=== PATIENT | female | born 1945 | race Hispanic/Latino ===

== ENCOUNTER 2016-11-24 19:49 | Inpatient (IN) | payer MEDICARE ==
[2016-11-24] MEDS ORDERED: Morphine 4 mg/ml ISec IVP STA (20:14)
[2016-11-24] MEDS ORDERED: Sodium Chloride 0.9% 1,000 ML IV STA (20:14)
[2016-11-24] MEDS ORDERED: Morphine 2 mg/ml ISec IVP STA (20:16)
[2016-11-24 21:01] LABS: BASO # 0.02 K/mm3 (0.0-2.0); BASO % 0.1 % (0.0-3.0); EOS % 0.3 % (1.5-5.0); GRAN # 11.58 (1.4-6.5); GRAN % 76.6 % (50.0-68.0); HEMOGLOBIN 11.9 gm/dL (12.0-16.0); LYMPH # 1.9 (1.2-3.4); LYMPH % 12.5 % (22.0-35.0); MEAN CELL VOLUME 78.8 fL (80.0-105.0); MEAN CORPUSCULAR HEMOGLOBIN 25.8 pg (25.0-35.0); MEAN CORPUSCULAR HGB CONC 32.7 g/dl (31.0-37.0); MEAN PLATELET VOLUME 9.1 fl (7.0-11.0); MONO # 1.6 (0.1-0.6); MONO % 10.5 % (1.0-6.0); PLATELET COUNT 400 10^3/uL (120.0-450.0); RBC 4.62 10^6/uL (3.5-6.1); RED CELL DISTRIBUTION WIDTH 14.5 % (11.5-14.5); WHITE BLOOD COUNT 15.1 10^3/ul (4.5-11.0)
[2016-11-24 21:09] LABS: ALBUMIN 3.8 g/dL (3.0-4.8); ALT/SGPT 33 U/L (7-56); AST/SGOT 23 U/L (15-39); BLOOD UREA NITROGEN 12 mg/dL (7-21); GFR AFRICAN-AMERICAN > 60; GFR NON-AFRICAN AMERICAN > 60
[2016-11-24 21:12] LABS: AMYLASE 990 U/L (35-125)
[2016-11-24 21:15] LABS: INR 1.11 (0.93-1.08); PARTIAL THROMBOPLASTIN TIME 28.7 Seconds (23.7-30.8)
--- NOTE | 2016-11-24 21:15 | ED PDOC ---
Arrival/HPI - General Chief Complaint: Chest Pain Time Seen by Provider: 11/24/16 19:55 Historian: Patient - History of Present Illness Narrative History of Present Illness (Text): 11/24/16 21:12 Roro Ball is a 71 year old female, with a history of CVA, presents to the emergency department complaining of abdominal pain associated with distention since yesterday. States that pain radiates to the chest and shoulders. Denies any nausea, vomiting, or diarrhea. Denies any shortness of breath. Denies fever, chills, headache, dizziness, urinary symptoms, or any other complaints at this time. Time/Duration: Other (Yesterday ) Symptom Onset: Gradual Severity Level: Mild Activities at Onset: Light Context: Home Past Medical History - Provider Review Nursing Documentation Reviewed: Yes - Infectious Disease Hx of Infectious Diseases: None - Cardiac Hx Cardiac Disorders: Yes Hx Hypertension: Yes (pre-hypertensive) - Pulmonary Hx Respiratory Disorders: No - Neurological HX Cerebrovascular Accident: Yes (10 years ago, no deficits) - HEENT Hx HEENT Disorder: No - Renal Hx Renal Disorder: No - Endocrine/Metabolic Hx Diabetes Mellitus Type 2: Yes (pre-diabetic) - Hematological/Oncological Hx Blood Transfusions: No Hx Blood Transfusion Reaction: No - Integumentary Hx Dermatological Disorder: No - Musculoskeletal/Rheumatological Hx Falls: No - Gastrointestinal Hx Gastrointestinal Disorders: No - Genitourinary/Gynecological Hx Genitourinary Disorders: No - Psychiatric Hx Psychophysiologic Disorder: No Hx Substance Use: No - Surgical History Other/Comment: ectopic and laser Kidney stone removal to R kidney - Anesthesia Hx Anesthesia: Yes Hx Anesthesia Reactions: No Hx Malignant Hyperthermia: No Family/Social History - Physician Review Nursing Documentation Reviewed: Yes Family/Social History: No Known Family HX Smoking Status: Never Smoked Hx Alcohol Use: Yes (occasional glass of wine) Hx Substance Use: No Allergies/Home Meds Allergies/Adverse Reactions: Allergies Penicillins Allergy (Verified 11/24/16 20:05) RASH Review of Systems - Physician Review All systems were reviewed & negative as marked: Yes - Review of Systems Constitutional: Normal. absent: Fatigue, Fevers Respiratory: absent: SOB, Cough, Sputum Cardiovascular: Chest Pain Gastrointestinal: Abdominal Pain. absent: Diarrhea, Nausea, Vomiting Genitourinary Female: Normal. absent: Dysuria, Frequency Musculoskeletal: Other (Shoulder pain ) Neurological: Normal. absent: Headache, Dizziness Psychiatric: Normal Physical Exam Vital Signs Reviewed: Yes Vital Signs Temp Pulse Pulse Resp BP Pulse Ox 11/25/16 02:22 82 18 99 11/25/16 00:56 98.2 F 92 H 23 147/84 94 L 11/24/16 20:10 86 11/24/16 20:06 99.1 F 100 H 26 H 201/82 H 95 Temperature: Afebrile Blood Pressure: Hypertensive Pulse: Tachycardic Respiratory Rate: Normal Appearance: Positive for: Well-Appearing, Non-Toxic, Comfortable Pain Distress: None Mental Status: Positive for: Alert and Oriented X 3 Finger Stick Blood Glucose: 364 - Systems Exam Head: Present: Atraumatic, Normocephalic Pupils: Present: PERRL Extroacular Muscles: Present: EOMI Conjunctiva: Present: Normal Mouth: Present: Moist Mucous Membranes Neck: Present: Normal Range of Motion Respiratory/Chest: Present: Clear to Auscultation, Good Air Exchange. No: Respiratory Distress, Accessory Muscle Use Cardiovascular: Present: Regular Rate and Rhythm, Normal S1, S2. No: Murmurs Abdomen: Present: Tenderness (RUQ tenderness ), Normal Bowel Sounds. No: Distention, Peritoneal Signs, Rebound, Guarding Upper Extremity: Present: Normal Inspection. No: Cyanosis, Edema Lower Extremity: Present: Normal Inspection. No: Edema Neurological: Present: GCS=15, CN II-XII Intact, Speech Normal, Motor Func Grossly Intact, Normal Sensory Function Skin: Present: Warm, Dry, Normal Color. No: Rashes Psychiatric: Present: Alert, Oriented x 3, Normal Insight, Normal Concentration Medical Decision Making ED Course and Treatment: 11/24/16 21:17 Impression: A 71 year old female who presents to the emergency department complaining of abdominal pain radiating to chest and shoulder since yesterday. Plan: -- EKG -- Labs -- Morphine -- IV Fluids -- Zofran -- Urinalysis -- US Gall bladder -- Reassess and disposition Progress Notes: 11/24/16 21:17 EKG reviewed by me: NSR @ 98 bpm. Possible left atrial enlargement. Prolonged QT. US results reviewed: FINDINGS: Liver: Fatty infiltration. 3.2 x 2.1 x 2.3 cm hypoechoic lesion within RIGHT lobe. No intrahepatic ductal dilatation. Gallbladder: No gallstones. 0.32 cm wall thickness. No pericholecystic fluid. No sonographic Casas's sign. Common bile duct: No dilatation. No stones. Pancreas: Unremarkable as visualized. Right kidney: Normal echogenicity. 0.5 x 0.4 x 0.6 cm calculus. Mild pelvocaliectasis. IMPRESSION: 1. Liver lesion, indeterminate. Recommend nonemergent MRI. 2. Mild pelvocaliectasis of RIGHT kidney. 3. Incidental/non-acute findings are described above. Dictated and Authenticated by: Marvel Ventura MD CT abd/pel results reviewed by me: FINDINGS: Limitations: Lack of intravenous contrast. Motion artifact - mild. Lower thorax: Borderline cardiomegaly. Coronary artery calcifications. Mild atelectasis/scarring. ABDOMEN: Liver: Fatty infiltration. Focal fatty sparing about gallbladder fossa. Gallbladder and bile ducts: No calcified stones. No ductal dilation. Pancreas: Several calcifications within head of pancreas. 3.0 x 1.6 x 2.3 cm hypodense lesion within uncinate process of pancreas, grossly stable. Apparent minimal stranding about pancreas. Mild prominence of pancreatic duct. Spleen: No splenomegaly. Adrenals: No mass. Kidneys and ureters: Mild stranding about kidneys, nonspecific. Moderate pelvocaliectasis of RIGHT kidney. Mildly dilated RIGHT ureter. Stomach and bowel: Segmental areas of underdistention of LEFT colon. No definite mural thickening. No obstruction. Appendix: Normal caliber. No definite inflammation. PELVIS: Bladder: Unremarkable. No stones. Reproductive: 1.4 x 1.4 x 1.8 cm hypodense lesion within LEFT ovary, grossly stable. ABDOMEN and PELVIS: Intraperitoneal space: Small free fluid within pelvis. 3.5 x 1.6 x 3.4 cm fluid collection along caudate lobe. Bones/joints: Degenerative changes of spine. No acute fracture. Soft tissues: Unremarkable. Vasculature: Mild atherosclerotic disease. No aneurysm. Lymph nodes: No pathologically enlarged lymph nodes. IMPRESSION: 1. Pancreatic lesion, indeterminate but grossly stable. Recommend followup to ensure stability. 2. Apparent minimal stranding about pancreas. Correlate with amylase/lipase levels to exclude pancreatitis. 3. Fluid collection about caudate lobe of liver. DDX: Pseudocyst, abscess, chronic subcapsular hematoma. 4. Hydroureteronephrosis without CT evidence of obstructing calculus. DDX: obstructing radiolucent stone, recently passed ureteral calculus, ureteral stricture, infection, obstructing ureteral mass. Clinical correlation and follow up are recommended. 5. Probable LEFT ovarian cyst, grossly stable. 6. Incidental/non-acute findings are described above. Dictated and Authenticated by: Marvel Ventura MD 11/25/16 01:[address] Gaona who is aware and agrees with the plan to observe patient at Med/surg for pancreatitis. Accepts patient under his service. - Lab Interpretations Lab Results: 11/24/16 20:50 11/24/16 20:50 Lab Results 11/24/16 20:50: Sodium 133, Potassium 4.2, Chloride 98, Carbon Dioxide 25, Anion Gap 14, BUN 12, Creatinine 0.8, Est GFR ( Amer) > 60, Est GFR (Non- Af Amer) > 60, Random Glucose 394 H* D, Calcium 9.0, Total Bilirubin 0.6, AST 23 , ALT 33, Alkaline Phosphatase 91, Lactate Dehydrogenase 331 L, Total Creatine Kinase 37, Troponin I < 0.01, Total Protein 7.5, Albumin 3.8, Globulin 3.7, Albumin/Globulin Ratio 1.0 L, Amylase 990 H, Lipase 9221 H 11/24/16 20:50: PT 12.0 H, INR 1.11 H, APTT 28.7 11/24/16 20:50: WBC 15.1 H, RBC 4.62, Hgb 11.9 L, Hct 36.4, MCV 78.8 L, MCH 25.8 , MCHC 32.7, RDW 14.5, Plt Count 400, MPV 9.1, Gran % 76.6 H, Lymph % (Auto) 12.5 L, [place] % (Auto) 10.5 H, Eos % (Auto) 0.3 L, Baso % (Auto) 0.1, Gran # 11.58 H, Lymph # 1.9, [place] # 1.6 H, Eos # 0.0, Baso # 0.02 11/24/16 20:12: POC Glucose (mg/dL) 364 H I have reviewed the lab results: Yes - RAD Interpretation Radiology Orders: 11/24/16 20:16 GALL BLADDER [US] Stat 11/24/16 21:53 ABD & PELVIS W/O PO OR IV CONT [CT] Stat Tool Crib Manager: Radiologist - EKG Interpretation Interpreted by ED Physician: Yes Type: 12 lead EKG - Medication Orders Current Medication Orders: Acetaminophen (Tylenol 325mg Tab) 650 mg PO Q4H PRN PRN Reason: Fever >100.5 F Sodium Chloride (Sodium Chloride 0.9%) 1,000 mls @ 100 mls/hr IV .Q10H CHAYO Stop: 11/27/16 05:00 Last Admin: 11/25/16 16:52 Dose: 100 mls/hr Insulin Human Regular (Humulin R Low) 0 units SC ACHS CHAYO PRN Reason: Protocol Last Admin: 11/25/16 21:54 Dose: Not Given Non-Admin Reason: Blood Sugar Parameter Morphine Sulfate (Morphine) 1 mg IVP Q3H PRN PRN Reason: Pain, moderate (4-7) Ondansetron HCl (Zofran Inj) 4 mg IVP Q6H PRN PRN Reason: Nausea/Vomiting Discontinued Medications Sodium Chloride (Sodium Chloride 0.9%) 1,000 mls @ 100 mls/hr IV .Q10H STA Stop: 11/25/16 06:13 Last Admin: 11/24/16 20:55 Dose: 100 mls/hr Sodium Chloride (Sodium Chloride 0.9%) 1,000 mls @ 100 mls/hr IV .Q10H STA Stop: 11/25/16 12:00 Morphine Sulfate (Morphine) 2 mg IVP STAT STA Stop: 11/24/16 20:17 Last Admin: 11/24/16 20:54 Dose: 2 mg Morphine Sulfate (Morphine) 2 mg IVP STAT STA Stop: 11/25/16 02:04 Last Admin: 11/25/16 02:46 Dose: 2 mg Ondansetron HCl (Zofran Inj) 4 mg IVP STAT STA Stop: 11/24/16 20:15 Last Admin: 11/24/16 20:54 Dose: 4 mg - Scribe Statement The provider has reviewed the documentation as recorded by the Alan Du Provider Attestation: Provider Scribe Attestation: All medical record entries made by the Walteribxenia were at my direction and personally dictated by me. I have reviewed the chart and agree that the record accurately reflects my personal performance of the history, physical exam, medical decision making, and the department course for this patient. I have also personally directed, reviewed, and agree with the discharge instructions and disposition. Disposition/Present on Arrival - Present on Arrival Any Indicators Present on Arrival: No History of DVT/PE: No History of Uncontrolled Diabetes: Yes Urinary Catheter: No History of Decub. Ulcer: No History Surgical Site Infection Following: None - Disposition Have Diagnosis and Disposition been Completed?: Yes Diagnosis: Pancreatitis Disposition: HOSPITALIZED Disposition Time: 01:30 Condition: FAIR
[2016-11-24 21:26] LABS: LIPASE 9221 U/L (23-300); TROPONIN I < 0.01 ng/mL
--- NOTE | 2016-11-24 21:41 | US ---
EXAM: US Abdomen Limited, Right Upper Quadrant CLINICAL HISTORY: 71 years old, female; Pain; Abdominal pain; Additional info: Ruq pain TECHNIQUE: Real-time ultrasound of the right upper quadrant with image documentation. COMPARISON: CT - PANCREATIC PROTOCOL 04/12/2016 5:39:51 PM FINDINGS: Liver: Fatty infiltration. 3.2 x 2.1 x 2.3 cm hypoechoic lesion within RIGHT lobe. No intrahepatic ductal dilatation. Gallbladder: No gallstones. 0.32 cm wall thickness. No pericholecystic fluid. No sonographic Casas's sign. Common bile duct: No dilatation. No stones. Pancreas: Unremarkable as visualized. Right kidney: Normal echogenicity. 0.5 x 0.4 x 0.6 cm calculus. Mild pelvocaliectasis. IMPRESSION: 1. Liver lesion, indeterminate. Recommend nonemergent MRI. 2. Mild pelvocaliectasis of RIGHT kidney. 3. Incidental/non-acute findings are described above.
--- NOTE | 2016-11-25 01:07 | CT ---
EXAM: CT Abdomen and Pelvis Without Intravenous Contrast CLINICAL HISTORY: 71 years old, female; Pain; Abdominal pain; Generalized; Prior surgery; Surgery date: 6+ months; Additional info: Abd pain TECHNIQUE: Axial computed tomography images of the abdomen and pelvis without intravenous contrast. This CT exam was performed using one or more of the following dose reduction techniques: automated exposure control, adjustment of the mA and/or kV according to patient size, and/or use of iterative reconstruction technique. Coronal and sagittal reformatted images were created and reviewed. COMPARISON: CT - PANCREATIC PROTOCOL 04/12/2016 5:39:51 PM FINDINGS: Limitations: Lack of intravenous contrast. Motion artifact - mild. Lower thorax: Borderline cardiomegaly. Coronary artery calcifications. Mild atelectasis/scarring. ABDOMEN: Liver: Fatty infiltration. Focal fatty sparing about gallbladder fossa. Gallbladder and bile ducts: No calcified stones. No ductal dilation. Pancreas: Several calcifications within head of pancreas. 3.0 x 1.6 x 2.3 cm hypodense lesion within uncinate process of pancreas, grossly stable. Apparent minimal stranding about pancreas. Mild prominence of pancreatic duct. Spleen: No splenomegaly. Adrenals: No mass. Kidneys and ureters: Mild stranding about kidneys, nonspecific. Moderate pelvocaliectasis of RIGHT kidney. Mildly dilated RIGHT ureter. Stomach and bowel: Segmental areas of underdistention of LEFT colon. No definite mural thickening. No obstruction. Appendix: Normal caliber. No definite inflammation. PELVIS: Bladder: Unremarkable. No stones. Reproductive: 1.4 x 1.4 x 1.8 cm hypodense lesion within LEFT ovary, grossly stable. ABDOMEN and PELVIS: Intraperitoneal space: Small free fluid within pelvis. 3.5 x 1.6 x 3.4 cm fluid collection along caudate lobe. Bones/joints: Degenerative changes of spine. No acute fracture. Soft tissues: Unremarkable. Vasculature: Mild atherosclerotic disease. No aneurysm. Lymph nodes: No pathologically enlarged lymph nodes. IMPRESSION: 1. Pancreatic lesion, indeterminate but grossly stable. Recommend followup to ensure stability. 2. Apparent minimal stranding about pancreas. Correlate with amylase/lipase levels to exclude pancreatitis. 3. Fluid collection about caudate lobe of liver. DDX: Pseudocyst, abscess, chronic subcapsular hematoma. 4. Hydroureteronephrosis without CT evidence of obstructing calculus. DDX: obstructing radiolucent stone, recently passed ureteral calculus, ureteral stricture, infection, obstructing ureteral mass. Clinical correlation and follow up are recommended. 5. Probable LEFT ovarian cyst, grossly stable. 6. Incidental/non-acute findings are described above.
[2016-11-25] MEDS ORDERED: Sodium Chloride 0.9% 1,000 ML IV STA (02:01)
[2016-11-25] MEDS ORDERED: Morphine 2 mg/ml ISec IVP STA (02:03)
[2016-11-25 08:59] LABS: BASO # 0.02 K/mm3 (0.0-2.0); BASO % 0.1 % (0.0-3.0); EOS # 0.1 (0.0-0.7); EOS % 0.5 % (1.5-5.0); GRAN # 10.77 (1.4-6.5); GRAN % 72.9 % (50.0-68.0); HEMOGLOBIN 10.9 gm/dL (12.0-16.0); LYMPH # 2.1 (1.2-3.4); LYMPH % 14.3 % (22.0-35.0); MEAN CELL VOLUME 79.4 fL (80.0-105.0); MEAN CORPUSCULAR HEMOGLOBIN 25.5 pg (25.0-35.0); MEAN CORPUSCULAR HGB CONC 32.1 g/dl (31.0-37.0); MONO # 1.8 (0.1-0.6); MONO % 12.2 % (1.0-6.0); PLATELET COUNT 356 10^3/uL (120.0-450.0); RBC 4.28 10^6/uL (3.5-6.1); RED CELL DISTRIBUTION WIDTH 14.6 % (11.5-14.5); WHITE BLOOD COUNT 14.8 10^3/ul (4.5-11.0)
[2016-11-25 09:10] LABS: ALBUMIN 3.5 g/dL (3.0-4.8); ALT/SGPT 30 U/L (7-56); AST/SGOT 20 U/L (15-39); BLOOD UREA NITROGEN 12 mg/dL (7-21); CALCIUM 8.8 mg/dL (8.4-10.5); GFR AFRICAN-AMERICAN > 60; GFR NON-AFRICAN AMERICAN > 60; MAGNESIUM 1.9 mg/dL (1.7-2.2)
[2016-11-25 09:17] LABS: LIPASE 3664 U/L (23-300)
[2016-11-25] MEDS ORDERED: FMT LOWER DELIVERY MICROBIOTA PREPARATION 250 ML RC ONE (09:59)
[2016-11-25] MEDS ORDERED: Morphine 2 mg/ml ISec IVP PRN (10:00)
--- NOTE | 2016-11-25 13:00 | CARD ---
APPROVED REPORT EKG Measurement Heart [id number] <Conclusion> Normal sinus rhythm Possible Left atrial enlargement Prolonged QT Abnormal ECG
[2016-11-25] MEDS: Sodium Chloride 0.9% 1,000 ML IV SCH (16:52)
[2016-11-25] MEDS: Insulin Reg-LOW-Coverage SC SCH (21:54)
[2016-11-26 07:20] LABS: ALBUMIN 3.5 g/dL (3.0-4.8); ALT/SGPT 30 U/L (7-56); AST/SGOT 22 U/L (15-39); BLOOD UREA NITROGEN 9 mg/dL (7-21); CALCIUM 8.3 mg/dL (8.4-10.5); GFR AFRICAN-AMERICAN > 60; GFR NON-AFRICAN AMERICAN > 60; LIPASE 742 U/L (23-300); MAGNESIUM 1.9 mg/dL (1.7-2.2)
[2016-11-26 07:31] LABS: HDL CHOLESTEROL 34 mg/dL (29-60); LDL CHOLESTEROL 85 mg/dL (0-129)
[2016-11-26 07:39] LABS: BASO # 0.03 K/mm3 (0.0-2.0); BASO % 0.2 % (0.0-3.0); EOS # 0.2 (0.0-0.7); EOS % 1.6 % (1.5-5.0); GRAN % 62.9 % (50.0-68.0); HEMOGLOBIN 11.1 gm/dL (12.0-16.0); LYMPH # 3.2 (1.2-3.4); MEAN CELL VOLUME 81.1 fL (80.0-105.0); MEAN CORPUSCULAR HEMOGLOBIN 25.6 pg (25.0-35.0); MEAN CORPUSCULAR HGB CONC 31.5 g/dl (31.0-37.0); MEAN PLATELET VOLUME 9.4 fl (7.0-11.0); MONO # 1.3 (0.1-0.6); MONO % 10.3 % (1.0-6.0); PLATELET COUNT 437 10^3/uL (120.0-450.0); RBC 4.34 10^6/uL (3.5-6.1); RED CELL DISTRIBUTION WIDTH 14.9 % (11.5-14.5); WHITE BLOOD COUNT 12.7 10^3/ul (4.5-11.0)
[2016-11-26] MEDS: Insulin Reg-LOW-Coverage SC SCH ×4 (08:34→21:50)
[2016-11-26] MEDS: Sodium Chloride 0.9% 1,000 ML IV SCH (08:36)
--- NOTE | 2016-11-26 18:21 | CON ---
DATE OF SERVICE: 11/26/2016 HISTORY OF PRESENT ILLNESS: I examined Ms. Ball this morning. She is a 71-year-old Syrian female with a history of CVA in the past, admitted with complaints of severe diffuse abdominal pain which started last Wednesday. Pain radiated across her chest up to her shoulders and this was associated with distended abdomen. She felt *------* constipation, she took Fleet enemas with immediate relief. The patient denies hematemesis or rectal bleeding. This is the first episode she has had of this type. This morning at the bedside, the abdomen is slightly decompressed. She feels better than previously, especially after a small bowel movement last night. The pain is still across the upper part of her abdomen into the chest area and she feels comfortable with the current regimen. PHYSICAL EXAMINATION: VITAL SIGNS: I reviewed the patient's vital signs. HEENT: Significant for dry mouth. LUNGS: Some crackles bilaterally, especially in the right base. HEART: Irregular rhythm. ABDOMEN: Mildly protuberant, nontender in the area of the right lower quadrant and the left lower quadrant. She is mildly tender in the area of the periumbilical, the right upper quadrant, and the left upper quadrant. She also exhibits some epigastric discomfort. LABORATORY DATA: Indicates white count on admission of 15,000 with an H and H of 11.9 and 36.4. INR is within normal limits. Chemistry indicates lipase of 3600 with sugar ranging between 220 to 330. Hemoglobin A1c is 9.9. There is no record of triglyceride or cholesterol, but she has indicated that these have been "high in the past." I reviewed the abdomen and pelvic CT images which are significant for hepatic steatosis. There is also pancreatic calcification with a small lesion in the uncinate process. There is some pancreatic stranding. There is no pseudocyst. There is small amount of fluid in the pelvis also. The CT also indicates according to Radiology some hydroureteronephrosis. Note that there is a dilated right ureter. OVERALL ASSESSMENT: This is a 71-year-old Syrian female, admitted with exacerbation of abdominal pain with chest discomfort secondary to pancreatitis. Evaluation of the CT noted above. Note that her ultrasound indicates hepatic steatosis with also one small hypercoagulation in the right lobe. There is no intrahepatic ductal dilatation. There is calculus in the right kidney. There is no common bile duct obstruction. I reviewed the orders of this current case which include IV fluids, analgesics on a p.r.n. basis, Zofran. The IV fluids are currently at 100. One can consider increasing the IV fluid rate, also changing over to Ringer's Lactate. I think at this point in time also since the etiology of pancreatitis is uncertain, I will check a lipid profile. Review of her CT images regarding the uncinate process, dense lesion in the pancreas has to be entertained. At the current time in point at the bedside, the patient appears comfortable on the current regimen. The patient will be followed by *------* later on this morning. We would maintain the patient n.p.o. at this current time in point. Haroldo Paredes DO
[2016-11-27] MEDS: Sodium Chloride 0.9% 1,000 ML IV SCH (05:53)
--- NOTE | 2016-11-27 07:08 | PN ---
DATE: SUBJECTIVE: I saw this patient this morning. She is a 71-year-old white female admitted with complaints of abdominal pain, nausea, vomiting secondary to pancreatitis. The patient is improved dramatically on a current therapeutic regimen. She wished to have her diet advanced this morning. PHYSICAL EXAMINATION VITAL SIGNS: I reviewed this patient's vital signs. HEENT: Mouth is mildly dry. LUNGS: Clear to auscultation. HEART: Regular rhythm. ABDOMEN: Mildly tender, so protuberant. Regular bowel sounds. LABORATORY DATA: Laboratory data is pending for today. ASSESSMENT: This is a 71-year-old white female with signs and symptoms of pancreatitis, currently improving on current therapeutic regimen, can consider transfer of fluids to Ringer's lactate instead of sodium chloride at a later date. The patient's diet was advanced to very small volumes of clear liquid this morning only if the pain and nausea permit. Haroldo Paredes DO
[2016-11-27] MEDS: Insulin Reg-LOW-Coverage SC SCH ×4 (08:14→21:28)
[2016-11-27 08:34] LABS: BASO # 0.02 K/mm3 (0.0-2.0); BASO % 0.2 % (0.0-3.0); EOS # 0.3 (0.0-0.7); EOS % 2.5 % (1.5-5.0); GRAN # 6.98 (1.4-6.5); HEMOGLOBIN 10.5 gm/dL (12.0-16.0); LYMPH # 2.5 (1.2-3.4); LYMPH % 22.9 % (22.0-35.0); MEAN CELL VOLUME 79.4 fL (80.0-105.0); MEAN CORPUSCULAR HEMOGLOBIN 25.2 pg (25.0-35.0); MEAN CORPUSCULAR HGB CONC 31.7 g/dl (31.0-37.0); MEAN PLATELET VOLUME 8.7 fl (7.0-11.0); MONO # 1.1 (0.1-0.6); MONO % 10.4 % (1.0-6.0); PLATELET COUNT 382 10^3/uL (120.0-450.0); RBC 4.17 10^6/uL (3.5-6.1); WHITE BLOOD COUNT 10.9 10^3/ul (4.5-11.0)
[2016-11-27 08:44] LABS: ALB/GLOB RATIO 0.9 (1.1-1.8); ALBUMIN 3.3 g/dL (3.0-4.8); ALT/SGPT 29 U/L (7-56); AST/SGOT 24 U/L (15-39); BLOOD UREA NITROGEN 9 mg/dL (7-21); CALCIUM 8.4 mg/dL (8.4-10.5); GFR AFRICAN-AMERICAN > 60; GFR NON-AFRICAN AMERICAN > 60; LIPASE 602 U/L (23-300); MAGNESIUM 1.8 mg/dL (1.7-2.2)
[2016-11-27] MEDS: POLYETHYLENE GLYCOL 3350 17 GM/Dose PACKET PO SCH ×2 (10:28→17:37)
[2016-11-27] MEDS ORDERED: Potassium Chloride 20 mEq ER Tab PO ONE (11:02)
[2016-11-28] MEDS: Lactated Ringer's 1,000 ML IV SCH ×2 (06:22→17:05)
--- NOTE | 2016-11-28 07:04 | PN ---
DATE: 11/28/2016 SUBJECTIVE: I saw Ms. Carrera this morning. She is a [id number]old white female here with abdominal pain, nausea and vomiting with signs and symptoms of pancreatitis. The patient has made significant progress with us in 24 hours relative to day of admission. The pain is decreased to above possibly 3/4 out of 10. She is currently consuming a clear liquid diet, no issues. Advance diet to full liquids today. She now has IV fluids on board. PHYSICAL EXAMINATION HEENT: Noncontributory. CARDIOPULMONARY: Regular rate and rhythm. LUNGS: Clear to auscultation. ABDOMEN: Significantly being tender in the periumbilical area in the left upper quadrant, but decreased relatively to admission. The abdomen is soft and decompressed. LABORATORY DATA: I reviewed this patient's laboratory data. White count is currently down from 15 to 10,000 as of yesterday, it is pending for today. Lipase as of yesterday 602. Sugars ranges 200. ASSESSMENT AND PLAN: This is a 71-year-old white female here with signs and symptoms of pancreatitis. Currently making progress on current therapeutic regimen. I will reinstitute IV fluids of Ringers of Lactate at 100 an hour, advance diet to very small volumes of full fluid. She later on this morning. Haroldo Paredes DO
--- NOTE | 2016-11-28 07:23 | PN ---
DATE: 11/27/2016 SUBJECTIVE: The patient is a 71-year-old female, who was admitted yesterday with a diagnosis of pancreatitis. The patient experienced sudden onset of abdominal pain, presented to the emergency room and based on remarkably elevated amylase and lipase level plus CAT scan findings, the diagnosis was made. The patient was admitted. She was treated with intravenous antibiotics and she was maintained n.p.o. Since the admission, the patient had been improving. She stated the abdominal pain was decreasing. When seen today, the patient was sitting up in a chair. She was looking and feeling much better. PHYSICAL EXAMINATION: VITAL SIGNS: Remain stable. She remains afebrile. CARDIOPULMONARY: Regular. LUNGS: Clear. ABDOMEN: Soft. It was markedly less tender than on admission. The patient had been evaluated by Dr. Kaiser and then as the patient's request, changed Crts to Dr. Haroldo Paredes. We are slowly increasing the patient's diet at this point. She is up to clear liquids now. We will give her her medications from before hospitalization including the metformin, lisinopril, glipizide, Lipitor, aspirin and Xanax. Her lipase had come down from 9000 plus to 3664. The white blood cell count have also been normalizing from 15.1 down to 12.7. ASSESSMENT AND PLAN: We will continue to follow the patient closely, slowly increase diet as tolerated and we will be checking her labs in the morning. Macho Phillips MD [facility]
[2016-11-28 08:01] LABS: HEMOGLOBIN 10.6 gm/dL (12.0-16.0); MEAN CELL VOLUME 78.7 fL (80.0-105.0); MEAN CORPUSCULAR HEMOGLOBIN 25.1 pg (25.0-35.0); MEAN CORPUSCULAR HGB CONC 31.8 g/dl (31.0-37.0); MEAN PLATELET VOLUME 8.9 fl (7.0-11.0); RBC 4.23 10^6/uL (3.5-6.1); WHITE BLOOD COUNT 8.9 10^3/ul (4.5-11.0)
[2016-11-28 08:11] LABS: BLOOD UREA NITROGEN 5 mg/dL (7-21); CALCIUM 8.6 mg/dL (8.4-10.5); GFR AFRICAN-AMERICAN > 60; GFR NON-AFRICAN AMERICAN > 60; LIPASE 810 U/L (23-300); MAGNESIUM 1.8 mg/dL (1.7-2.2)
[2016-11-28] MEDS: Insulin Reg-LOW-Coverage SC SCH ×4 (08:15→22:03)
[2016-11-28] MEDS: POLYETHYLENE GLYCOL 3350 17 GM/Dose PACKET PO SCH ×3 (09:37→17:05)
--- NOTE | 2016-11-28 13:57 | HP ---
DATE OF ADMISSION: 11/25/2016 HISTORY OF PRESENT ILLNESS: The patient is a 71-year-old female, who presented to the emergency room complaining of sudden onset of abdominal pain. She had not been feeling well. She ate in a seafood restaurant and later on that evening became suddenly ill. The abdominal pain was radiating up to the shoulders. She denies any nausea, vomiting, diarrhea. Denies any chest pain, palpitations, or shortness of breath. PAST MEDICAL HISTORY: She has a past medical history positive for cerebrovascular disease and non-insulin dependent diabetes mellitus. In the distant past she had ectopic as well as lithotripsy of a right renal calculus. SOCIAL HISTORY: She is a . She never smoked. She occasional enjoys a glass of wine with dinner. ALLERGIES: She is noted to be allergic to PENICILLIN which caused a rash in the past. MEDICATIONS: At the time of admission include metformin 500 mg twice a day, lisinopril 10 mg once a day, glipizide 5 mg, Lipitor 10 mg, aspirin 81 mg, and Xanax 0.25 mg every 6 hours as needed. REVIEW OF SYSTEMS: Otherwise unremarkable. PHYSICAL EXAMINATION VITAL SIGNS: In the emergency room, the blood pressure was 201/82, respirations were 26, heart rate was 100 beats per minute, temperature was 99.1 degrees Fahrenheit. HEENT: The head, eyes, ears, nose, and throat were unremarkable. NECK: Supple with no lymphadenopathy. No goiter. LUNGS: Clear to auscultation and percussion. HEART: Regular. No murmurs are appreciated. ABDOMEN: Distended and diffusely tender, exquisitely tender in the midepigastric, right upper quadrant areas; however, was also tender in the left lower quadrant and left upper quadrant. EXTREMITIES: Free of cyanosis, clubbing, or edema. NEUROLOGICALLY: The patient was awake, alert, and oriented with nonfocal neurological signs. LABORATORY DATA: Revealed a white blood cell count to be 15.1, hemoglobin and hematocrit were 11.9 and 36.4 respectively, platelet count was 400. Sodium was 133, potassium 4.2, BUN and creatinine were 12 and 0.8 respectively, glucose was 394. Amylase was 990 and lipase was 9221. EKG showed regular sinus rhythm, left atrial enlargement and prolonged QT intervals. Ultrasound of the abdomen revealed fatty infiltration of the liver, There was a hypoechoic lesion within the right lobe, but no intrahepatic ductal dilatation. The gallbladder was free of gallstones. The wall of the gallbladder was 0.32 cm thick. Common bile duct was not dilated and the pancreas was unremarkable as visualized. The patient underwent CT of the abdomen and pelvis and this showed several calcifications within the head of the pancreas, 3 x 1.6 x 2.3 cm hyperdense lesions within uncinate process of the pancreas, it was grossly stable. There was minimal stranding about the pancreas with mild prominence of the pancreatic duct. The spleen showed no splenomegaly. The patient was admitted with the diagnosis of pancreatitis, she was started on IV fluids, made n.p.o. and GI consult was requested. We will follow the patient closely. Macho Phillips MDDD: 11/28/2016 6:14:06 [facility] CENTERBrooke
--- NOTE | 2016-11-28 23:30 | CP.PCM.PN ---
Subjective - Date & Time of Evaluation Date of Evaluation: 11/28/16 Time of Evaluation: 23:25 - Subjective Subjective: Nurse calls and tells that her BP was 202 / 84 mmHg, ordered hydralazine 25 mg PO , BP is still 181/107. Patient was seen at bedside. Has no complaints. Denies head ache, heaviness in head, lightheadedness, chest pain, sob, dizziness, paraesthesia, weakness. 71 year old woman was admitted with abdominal pain, feeling of not well being, Has PMH of CVA,NIDDM, right renal calculus, lithotripsy, ectopic . Objective - Vital Signs/Intake and Output Vital Signs (last 24 hours): Temp Pulse Resp BP Pulse Ox 97.4 F L 75 20 181/107 H 96 11/28/16 16:30 11/28/16 22:45 11/28/16 16:30 11/28/16 22:45 11/28/16 16:30 Intake and Output: 11/28/16 11/29/16 18:59 06:59 Intake Total 1460 360 Balance 1460 360 - Medications Medications: Current Medications Acetaminophen (Tylenol 325mg Tab) 650 mg PO Q4H PRN PRN Reason: Fever >100.5 F Alprazolam (Xanax) 0.25 mg PO Q6 PRN; Protocol PRN Reason: Agitation Stop: 12/04/16 18:01 Aspirin (Ecotrin) 81 mg PO DAILY [facility] Last Admin: 11/28/16 09:37 Dose: 81 mg Atorvastatin Calcium (Lipitor) 10 mg PO DIN [facility] Last Admin: 11/28/16 17:05 Dose: 10 mg Docusate Sodium (Colace) 100 mg PO BID [facility] Last Admin: 11/28/16 17:04 Dose: 100 mg Glipizide (Glucotrol) 5 mg PO ACB [facility] Last Admin: 11/28/16 08:15 Dose: 5 mg Hydralazine HCl (Apresoline) 25 mg PO DAILY [facility] Lactated Ringer's (Lactated Ringer's) 1,000 mls @ 100 mls/hr IV .Q10H [facility] Stop: 11/30/16 23:59 Last Admin: 11/28/16 17:05 Dose: Not Given Insulin Human Regular (Humulin R Low) 0 units SC ACHS [facility] PRN Reason: Protocol Last Admin: 11/28/16 22:03 Dose: Not Given Lisinopril (Zestril) 10 mg PO DAILY [facility] Last Admin: 11/28/16 09:38 Dose: 10 mg Metformin HCl (Glucophage) 500 mg PO BID [facility] Last Admin: 11/28/16 17:04 Dose: 500 mg Ondansetron HCl (Zofran Inj) 4 mg IVP Q6H PRN PRN Reason: Nausea/Vomiting Polyethylene Glycol (Miralax) 17 gm PO BID [facility] Last Admin: 11/28/16 17:05 Dose: 17 gm - Labs Labs: 11/28/16 06:55 11/28/16 06:55 PT 12.0 Seconds (9.9-11.8) H 11/24/16 20:50 INR 1.11 (0.93-1.08) H 11/24/16 20:50 APTT 28.7 Seconds (23.7-30.8) 11/24/16 20:50 Laboratory Last Values WBC 8.9 10^3/ul (4.5-11.0) 11/28/16 06:55 RBC 4.23 10^6/uL (3.5-6.1) 11/28/16 06:55 Hgb 10.6 gm/dL (12.0-16.0) L 11/28/16 06:55 Hct 33.3 % (36.0-48.0) L 11/28/16 06:55 MCV 78.7 fL (80.0-105.0) L 11/28/16 06:55 MCH 25.1 pg (25.0-35.0) 11/28/16 06:55 MCHC 31.8 g/dl (31.0-37.0) 11/28/16 06:55 RDW 14.0 % (11.5-14.5) 11/28/16 06:55 Plt Count 449 10^3/uL (120.0-450.0) 11/28/16 06:55 MPV 8.9 fl (7.0-11.0) 11/28/16 06:55 Gran % 64.0 % (50.0-68.0) 11/27/16 08:30 Lymph % (Auto) 22.9 % (22.0-35.0) 11/27/16 08:30 Maury % (Auto) 10.4 % (1.0-6.0) H 11/27/16 08:30 Eos % (Auto) 2.5 % (1.5-5.0) 11/27/16 08:30 Baso % (Auto) 0.2 % (0.0-3.0) 11/27/16 08:30 Gran # 6.98 (1.4-6.5) H 11/27/16 08:30 Lymph # 2.5 (1.2-3.4) 11/27/16 08:30 Maury # 1.1 (0.1-0.6) H 11/27/16 08:30 Eos # 0.3 (0.0-0.7) 11/27/16 08:30 Baso # 0.02 K/mm3 (0.0-2.0) 11/27/16 08:30 PT 12.0 Seconds (9.9-11.8) H 11/24/16 20:50 INR 1.11 (0.93-1.08) H 11/24/16 20:50 APTT 28.7 Seconds (23.7-30.8) 11/24/16 20:50 Sodium 138 mmol/L (132-148) 11/28/16 06:55 Potassium 3.8 mmol/L (3.6-5.0) 11/28/16 06:55 Chloride 102 mmol/L (98-107) 11/28/16 06:55 Carbon Dioxide 28 mmol/L (21-33) 11/28/16 06:55 Anion Gap 12 (10-20) 11/28/16 06:55 BUN 5 mg/dL (7-21) L 11/28/16 06:55 Creatinine 0.6 mg/dL (0.5-1.4) 11/28/16 06:55 Est GFR ( Amer) > 60 11/28/16 06:55 Est GFR (Non-Af Amer) > 60 11/28/16 06:55 POC Glucose (mg/dL) 86 mg/dL (65-110) 11/28/16 15:50 Random Glucose 182 mg/dL (70-110) H 11/28/16 06:55 Hemoglobin A1c 9.9 % (4.2-6.5) H 11/25/16 08:30 Calcium 8.6 mg/dL (8.4-10.5) 11/28/16 06:55 Magnesium 1.8 mg/dL (1.7-2.2) 11/28/16 06:55 Total Bilirubin 0.6 mg/dL (0.2-1.3) 11/27/16 08:30 AST 24 U/L (15-39) 11/27/16 08:30 ALT 29 U/L (7-56) 11/27/16 08:30 Alkaline Phosphatase 86 U/L (38-133) 11/27/16 08:30 Lactate Dehydrogenase 331 U/L (333-699) L 11/24/16 20:50 Total Creatine Kinase 37 U/L (35-230) 11/24/16 20:50 Troponin I < 0.01 ng/mL 11/24/16 20:50 Total Protein 6.9 g/dL (5.8-8.3) 11/27/16 08:30 Albumin 3.3 g/dL (3.0-4.8) 11/27/16 08:30 Globulin 3.6 gm/dL 11/27/16 08:30 Albumin/Globulin Ratio 0.9 (1.1-1.8) L 11/27/16 08:30 Triglycerides 167 mg/dL (35-160) H 11/26/16 06:40 Cholesterol 167 mg/dL (130-200) 11/26/16 06:40 LDL Cholesterol Direct 85 mg/dL (0-129) 11/26/16 06:40 HDL Cholesterol 34 mg/dL (29-60) 11/26/16 06:40 Amylase 990 U/L (35-125) H 11/24/16 20:50 Lipase 810 U/L (23-300) H 11/28/16 06:55 - Constitutional Appears: Well, No Acute Distress - Head Exam Head Exam: ATRAUMATIC, NORMAL INSPECTION, NORMOCEPHALIC - Eye Exam Eye Exam: Normal appearance - ENT Exam ENT Exam: Normal External Ear Exam - Neck Exam Neck Exam: Normal Inspection - Respiratory Exam Respiratory Exam: NORMAL BREATHING PATTERN - Cardiovascular Exam Cardiovascular Exam: absent: JVD - GI/Abdominal Exam GI & Abdominal Exam: absent: Distended - Rectal Exam Rectal Exam: Deferred - Exam Additional comments: Deferred. - Extremities Exam Extremities Exam: Normal Inspection - Back Exam Back Exam: NORMAL INSPECTION - Neurological Exam Neurological Exam: Alert, Oriented x3 - Psychiatric Exam Psychiatric exam: Normal Affect, Normal Mood - Skin Skin Exam: Normal Color Assessment and Plan - Assessment and Plan (Free Text) Assessment: Elevated blood pressure reading. HTN. NIDDM. Plan: Hydralazine 25 mg PO stat. Recheck BP in one hour. Continue present management.
[2016-11-29] MEDS ORDERED: Labetalol 5 mg/ml Inj 20ML IV STA ×2 (05:10→06:02)
[2016-11-29 07:54] VITALS: RESP 18
[2016-11-29] MEDS: Insulin Reg-LOW-Coverage SC SCH ×4 (08:18→22:12)
[2016-11-29] MEDS: POLYETHYLENE GLYCOL 3350 17 GM/Dose PACKET PO SCH ×4 (10:15→17:22)
--- NOTE | 2016-11-29 12:07 | PN ---
DATE: 11/29/2016 SUBJECTIVE: I examined the patient this morning. She is a 71-year-old white female admitted with complaints of abdominal pain and nausea secondary to pancreatitis. The patient has been improving on a daily basis; however, still has some residual pain, but definitely improved relative to the day of admission. Main concern at the bedside this morning was elevated blood pressure. Systolic pressure somewhere in the range of over 200 earlier this morning. She also had issues regarding screening for pancreatic cancer, maintaining low fats as well as the blood sugar. The patient apparently handled liquid diet yesterday without nausea; however, has been complaining of about excessive gas. She expressed the desire to increase consistency of diet today. PHYSICAL EXAMINATION: VITAL SIGNS: I reviewed this patient's vital signs. Note that the blood pressure systolic earlier this morning was greater than 200. LUNGS: Decreased breath sounds, basilar. HEART: Regular rate and rhythm. ABDOMEN: Soft. Tender in the periumbilical area and left upper quadrant. Abdomen is less distended than the day of admission. LABORATORY DATA: Review of laboratory data indicates sugars in the range of 170+. Lipase as of yesterday 810 down from 3664, but has been creeping up slightly with dietary advance. Note that the lipase can act as a phase reactant to some degree also. Hematology indicates decrease in white count in the past couple of days from 15,000 initially down to 9 yesterday. H and H 10.6 and 33. I reviewed the reports of Dr. Phillips as well as Dr. Singh. OVERALL ASSESSMENT: This is a 71-year-old white female with signs and symptoms of pancreatitis. Note that this patient has initial CT scan performed on the , which was without contrast. At that time point, CT was significant for extensive hepatic steatosis with calcifications in the pancreatic head. There was a 3 x 2.3 hypodense area within the uncinate process. Also, there is a fluid collection *------*. At some time point, the uncinate region should be *------* FNA procedure. This is to rule out possible IPMN, that is intraductal pancreatic mucinous neoplasms. Whether this particular admission is an appropriate time to evaluate the latter will be up to the primary care doctor. At some time point also the patient deserves a contrast study, most likely an MR with contrast or a CT with oral and an IV contrast would be in this patient's best interest. Again, the timings of this would be at the discretion of primary care doctor. At the current time point, the patient appears improved and wishes to have her diet advanced. The diet has been advanced today to very small portions of soft or residual moderate carbohydrate content. The patient was advised not to push the volume, and if the diet advance causes adverse symptoms, that is increased pain, nausea, vomiting, etc., the diet will be changed back to liquid. Note that I mentioned previously that this patient has an irregularity in the kidney noted on her CT scan. She has a moderately dilated right ureter which should be addressed by a urology service. This again will be at the discretion of primary care doctor. Note also this patient has labile hypertension. The patient is on several medications. This could possibly be consolidate by a hypertension specialist. Haroldo Paredes DO
[2016-11-29 16:08] VITALS: TEMP 98.3; O2SAT 94
[2016-11-30] MEDS: Insulin Reg-LOW-Coverage SC SCH (09:47)
[2016-11-30] MEDS: POLYETHYLENE GLYCOL 3350 17 GM/Dose PACKET PO SCH (09:48)
[2016-11-30] MEDS: Lactated Ringer's 1,000 ML IV SCH (09:48)
[2016-11-30 09:49] VITALS: BP 167/71; PULSE 70
--- NOTE | 2016-11-30 10:18 | PN ---
DATE: 11/29/2016 SUBJECTIVE: The patient is 71-year-old female who is admitted 4 days ago with a diagnosis of pancreatitis. She had sudden onset of severe abdominal pain. In the emergency room, she was found to have markedly elevated amylase and lipase levels as well abnormal CAT scan findings. The patient was placed on IV fluids. She was kept n.p.o. and improved. When seen today, the patient is sitting up at bedside. She is feeling well. PHYSICAL EXAMINATION: GENERAL: She is very pleasant and she voices no complaints. LUNGS: Lungs are clear. HEART: The heart is regular. ABDOMEN: Soft and nontender, bowel sounds are normal. Plan: The patient is looking forward to a regular diet for lunch today and if tolerated, we are planning discharge to home in the morning. She had been followed by Dr. Paredes, the manager business continuity. So we are hopeful the patient continues to improve. Macho Phillips MD
--- NOTE | 2016-12-01 08:10 | PN ---
DATE OF SERVICE: 11/30/2016 SUBJECTIVE: I saw the patient this morning. She is a 71-year-old white female, here with signs and symptoms of abdominal pain, nausea, vomiting, found to have pancreatitis probably due to elevated lipids. The patient has made significant progress for the past couple of days and did very well with her dietary advance yesterday which consisted of soft, low-residue, moderate-carbohydrate type diet. The patient is exhibiting minimal pain right now to the level of 1 or 2/10. The patient has decided to go home. PHYSICAL EXAMINATION: VITAL SIGNS: I reviewed this patient's vital signs. HEENT: Noncontributory. LUNGS: Clear to auscultation. HEART: Regular rhythm. ABDOMEN: Soft. No tenderness within the epigastric or left upper quadrant, subcostal; very mild discomfort in the left paraumbilical, remainder noncontributory. She has normal bowel sounds. LABORATORY DATA: I reviewed the laboratory data today. Note that I gave the patient a copy of her CT scan report and gallbladder ultrasound. OVERALL ASSESSMENT AND PLAN: This patient is a 71-year-old female, here with signs and symptoms of pancreatitis. As I indicated, the patient has done well on the current therapeutic regimen which included especially intravenous fluids. Note that again as indicated in my prior notes, this patient had initial CT scan noncontrast which revealed a pancreas with calcifications in the pancreatic head, also a 3 x 2.3-cm hypodense area within the uncinate process. There was evidence of hepatic steatosis also. I reviewed this issue with the patient in detail. At some other date, the patient should have an FNA by endoscopic ultrasound evaluation of that hypodense area in the uncinate process. A choice of whether the patient has the procedure done will be at the discretion of Dr. Phillips who suggested to do this in [place] or possibly in [place]. Again, reason is to rule out possible IPMN that is intraductal papillary mucinous neoplasia. The patient is doing fine on current dietary regimen. She needs to lower her lipids which can be evaluated in the outpatient setting by Dr. Phillips. Hypertension is still an issue. This morning at the bedside, apparently her most recent systolic pressure is 165, unchanged. This can be trended outside by Dr. Phillips and/or by hypertension and renal specialists . I will sign off the case today. The patient should be discharged sometime later on. Again, I reviewed all the above including dietary regimens and followup for hypertension as well as the followup for the uncinate process abnormality. Haroldo Paredes DO
== END 2016-11-30 15:25 | disposition home or self-care (01) | DRG 439 ==
LOC: ED 19:49 → ERH 11-25 01:20 → 5RNO 11-25 02:41 → OBSVTOIN 11-26 08:35
PROVIDERS: ADMIT Internal Medicine; ATTEND Internal Medicine
DX: K85.90 Acute pancreatitis without necrosis or infection, unspecified (principal); N13.30 Unspecified hydronephrosis; E11.9 Type 2 diabetes mellitus without complications; I10 Essential (primary) hypertension; K76.0 Fatty (change of) liver, not elsewhere classified; Z86.73 Personal history of transient ischemic attack (TIA), and cerebral infarction without residual deficits; Z79.84 Long term (current) use of oral hypoglycemic drugs; Z87.442 Personal history of urinary calculi

== ENCOUNTER 2018-07-13 04:26 | Emergency (ER) | payer MEDICARE ==
--- NOTE | 2018-07-13 05:48 | ED PDOC ---
Arrival/HPI <Curt Carlos - Last Filed: 07/13/18 06:55> - General Historian: Patient - History of Present Illness Narrative History of Present Illness (Text): 07/13/18 05:45 73 y/o female with PMH of HTN, DM, CVA, pancreatitis presents to the ED with burning urination and suprapubic discomfort for one month. Patient also noticed red blood and blood clots in the urine. She was seen by urologist Dr Sarmiento andd was prescribed Bactrim for one week but failed treatment. She was seen again at urology office where kidney US and urine culture were normal. A second course of Macrobid was given but symptoms did not resolve. Patient was concerned and came to ED. She denies fever, chills, N/V, flank pain, vaginal bleeding. Patient report h/o kidney stone that was treated with lithotripsy 2 years ago. She did not experience any urinary symptoms since then. Patient denied CP, SOB, change in bowel movement, headache, dizziness, muscle weakness. Time/Duration: > month Symptom Onset: Gradual Quality: Burning Severity Level: 6 Activities at Onset: Light Context: Home <Nickolas Melgoza - Last Filed: 07/13/18 07:04> - General Chief Complaint: Female Genitourinary Time Seen by Provider: 07/13/18 05:00 Past Medical History - Provider Review Nursing Documentation Reviewed: Yes - Infectious Disease Hx of Infectious Diseases: None - Cardiac Hx Cardiac Disorders: Yes Hx Hypertension: Yes - Pulmonary Hx Respiratory Disorders: No - Neurological Hx Neurological Disorder: Yes HX Cerebrovascular Accident: Yes (10 years ago, no deficits) - HEENT Hx HEENT Disorder: No - Renal Hx Renal Disorder: Yes Hx Kidney Stones: Yes - Endocrine/Metabolic Hx Endocrine Disorders: Yes Hx Diabetes Mellitus Type 2: Yes (pre-diabetic) - Hematological/Oncological Hx Blood Transfusions: No Hx Blood Transfusion Reaction: No - Integumentary Hx Dermatological Disorder: No - Musculoskeletal/Rheumatological Hx Falls: No - Gastrointestinal Hx Gastrointestinal Disorders: Yes Hx Pancreatitis: Yes - Genitourinary/Gynecological Hx Genitourinary Disorders: No - Psychiatric Hx Psychophysiologic Disorder: No Hx Substance Use: No - Surgical History Other/Comment: ectopic and laser Kidney stone removal to R kidney - Anesthesia Hx Anesthesia: Yes Hx Anesthesia Reactions: No Hx Malignant Hyperthermia: No <Nickolas Melgoza - Last Filed: 07/13/18 07:04> Family/Social History - Physician Review Nursing Documentation Reviewed: Yes Family/Social History: CVA/TIA, Diabetes Smoking Status: Never Smoked Hx Alcohol Use: Yes (occasional glass of wine) Hx Substance Use: No <Nickolas Melgoza - Last Filed: 07/13/18 07:04> Allergies/Home Meds <Curt Carlos - Last Filed: 07/13/18 06:55> <Nickolas Melgoza - Last Filed: 07/13/18 07:04> Allergies/Adverse Reactions: Allergies Penicillins Allergy (Verified 11/24/16 20:05) RASH Home Medications: Home Meds Medication Instructions Recorded Confirmed Losartan/Hydrochlorothiazide 1 each PO BID 07/13/18 07/13/18 [Losartan-Hctz 100-25 mg Tab] MetFORMIN ER [Glucophage XR] 2 tab PO DAILY 07/13/18 07/13/18 Nitrofurantoin Monohyd/M-Cryst 100 mg PO BID 07/13/18 07/13/18 [Macrobid 100 mg Capsule] Review of Systems - Review of Systems Constitutional: absent: Fatigue, Weight Change, Fevers, Night Sweats Eyes: absent: Vision Changes Respiratory: absent: SOB, Cough, Sputum, Wheezing Cardiovascular: absent: Chest Pain, Palpitations, Edema, Orthopnea, Syncope Gastrointestinal: absent: Abdominal Pain, Constipation, Diarrhea, Nausea, Vomit ing, Hematochezia Genitourinary Female: Dysuria, Hematuria. absent: Vaginal Bleeding, Vaginal Discharge Musculoskeletal: absent: Arthralgias, Back Pain Skin: absent: Rash, Pruritis Neurological: absent: Headache, Dizziness, Focal Weakness Endocrine: absent: Diaphoresis, Polydipsia <Nickolas Melgoza - Last Filed: 07/13/18 07:04> Physical Exam Vital Signs Temp Pulse Resp BP Pulse Ox 07/13/18 05:27 151/71 H 07/13/18 04:54 97.3 F L 80 16 213/89 H 96 <Curt Carlos - Last Filed: 07/13/18 06:55> Vital Signs Temp Pulse Resp BP Pulse Ox 07/13/18 05:27 151/71 H 07/13/18 04:54 97.3 F L 80 16 213/89 H 96 Temperature: Afebrile Blood Pressure: Hypertensive Pulse: Regular Respiratory Rate: Normal Appearance: Positive for: Well-Appearing, Non-Toxic, Comfortable Pain Distress: None Mental Status: Positive for: Alert and Oriented X 3 - Systems Exam Head: Present: Atraumatic, Normocephalic Pupils: Present: PERRL Extroacular Muscles: Present: EOMI Conjunctiva: Present: Normal Mouth: Present: Moist Mucous Membranes Pharnyx: No: ERYTHEMA, EXUDATE Neck: Present: Normal Range of Motion Respiratory/Chest: Present: Clear to Auscultation, Good Air Exchange. No: Respiratory Distress, Accessory Muscle Use, Wheezes, Rales Cardiovascular: Present: Regular Rate and Rhythm, Normal S1, S2 Abdomen: Present: Normal Bowel Sounds. No: Tenderness, Distention, Peritoneal Signs Back: Present: Normal Inspection. No: CVA Tenderness, Midline Tenderness Upper Extremity: Present: Normal Inspection. No: Cyanosis, Edema Lower Extremity: Present: Normal Inspection. No: Edema Neurological: Present: GCS=15, CN II-XII Intact, Speech Normal Skin: Present: Warm, Dry, Normal Color. No: Rashes Psychiatric: Present: Alert, Oriented x 3, Normal Insight, Normal Concentration <Nickolas Melgoza - Last Filed: 07/13/18 07:04> Medical Decision Making ED Course and Treatment: Impression: Pt seen and evaluated with medical device sales consultant. Aware and agree with HPI, clinical findings, plan, and management. Pt, whose past medical history includes hypertension, diabetes, and pancreatitis, presented for dysuria, suprapubic discomfort, and hematuria. Plan: -- CT Abdomen and Pelvis -- Labs -- Urinalysis, urine cultures -- Reassess and disposition - RAD Interpretation Radiology Orders: 07/13/18 05:48 ABD & PELVIS W/O PO OR IV CONT [CT] Stat <Curt Carlos - Last Filed: 07/13/18 06:55> ED Course and Treatment: 07/13/18 06:08 73 y/o female with hematuria, dysurea who failed 2 courses of ambulatory antibiotic treatment. Plan: CT A/P w/o contrast UA U Cx Lab assess/disposition <Nickolas Melgoza - Last Filed: 07/13/18 07:04> - PA / [employer] AND [employer] FIELD TECHNICIAN / Resident Statement / has reviewed & agrees with the documentation as recorded. ILANA has examined the patient and agrees with the treatment plan. <TerranceCurt - Last Filed: 07/13/18 06:55> Disposition/Present on Arrival <Curt Carlos - Last Filed: 07/13/18 06:55> - Present on Arrival Any Indicators Present on Arrival: No History of DVT/PE: No History of Uncontrolled Diabetes: Yes Urinary Catheter: No History of Decub. Ulcer: No History Surgical Site Infection Following: None - Disposition Have Diagnosis and Disposition been Completed?: Yes Disposition Time: 07:04 Patient Plan: Discharge <Nickolas Melgoza - Last Filed: 07/13/18 07:04> - Disposition Diagnosis: UTI (urinary tract infection) Disposition: HOME/ ROUTINE Patient Problems: Current Active Problems Problem Status Onset UTI (urinary tract infection) Acute Condition: STABLE Discharge Instructions (ExitCare): Urinary Tract Infection, Adult (DC) Additional Instructions: follow up with urologist Dr Sarmiento within 2-3 days follow up with your PMD within 2 days Prescriptions: Levofloxacin [Levaquin] 500 mg PO DAILY 5 Days #5 tablet Referrals: Kiel Phillips MD [Primary Care Provider] - Follow up with primary Forms: Taaz (Greek)
[2018-07-13 06:17] LABS: BASO # 0.05 K/mm3 (0.0-2.0); BASO % 0.5 % (0.0-3.0); EOS # 0.2 (0.0-0.7); EOS % 1.6 % (1.5-5.0); HEMOGLOBIN 12.3 g/dL (12.0-16.0); LYMPH # 3.5 (1.2-3.4); LYMPH % 34.9 % (22.0-35.0); MEAN CELL VOLUME 80.6 fl (80.0-105.0); MEAN CORPUSCULAR HEMOGLOBIN 26.6 pg (25.0-35.0); MEAN PLATELET VOLUME 9.1 fl (7.0-11.0); MONO # 0.9 (0.1-0.6); MONO % 8.8 % (1.0-6.0); RBC 4.63 10^6/uL (3.5-6.1); RED CELL DISTRIBUTION WIDTH 13.3 % (11.5-14.5); WHITE BLOOD COUNT 10.1 10^3/uL (4.5-11.0)
[2018-07-13 06:25] LABS: URINE BILIRUBIN NEGATIVE (NEGATIVE); URINE BLOOD LARGE (NEGATIVE); URINE GLUCOSE (UA) >=1000 mg/dL (NEGATIVE); URINE LEUKOCYTE ESTERASE MODERATE Leu/uL (NEGATIVE); URINE PROTEIN 100 mg/dL (<30 mg/dL); URINE UROBILINOGEN 0.2 E.U./dL (<1 E.U./dL)
[2018-07-13 06:34] LABS: ALBUMIN 3.8 g/dL (3.0-4.8); CALCIUM 9.1 mg/dL (8.4-10.5)
[2018-07-13 06:36] LABS: URINE APPEARANCE CLOUDY (CLEAR); URINE COLOR RED (YELLOW)
[2018-07-13 06:49] LABS: URINE EPITHELIAL CELLS 0 - 2 /hpf (0-5); URINE WBC 20 - 25 /hpf (0-6)
[2018-07-13 06:50] LABS: URINE AMORPHOUS SEDIMENT FEW /hpf; URINE BACTERIA SMALL /hpf
--- NOTE | 2018-07-13 08:56 | CT ---
Date of service: 07/13/2018 PROCEDURE: CT Abdomen and Pelvis without intravenous contrast HISTORY: blood in urine COMPARISON: 05/24/2017 TECHNIQUE: Technique. Contrast dose: Radiation dose: Total exam DLP = 879.83 mGy-cm. This CT exam was performed using one or more of the following dose reduction techniques: Automated exposure control, adjustment of the mA and/or kV according to patient size, and/or use of iterative reconstruction technique. FINDINGS: LOWER THORAX: Unremarkable. LIVER: Unremarkable. No gross lesion or ductal dilatation. GALLBLADDER AND BILE DUCTS: Unremarkable. PANCREAS: Calcifications in the pancreas consistent with chronic pancreatitis. SPLEEN: Unremarkable. ADRENALS: Unremarkable. No mass. KIDNEYS AND URETERS: There is chronic right-sided hydronephrosis and hydroureter. This is unchanged. There are no obstructing stones seen. VASCULATURE: Unremarkable. No aortic aneurysm. No aortic atherosclerotic calcification or mural plaque present. BOWEL: Unremarkable. No obstruction. No gross mural thickening. APPENDIX: Unremarkable. Normal appendix. PERITONEUM: Unremarkable. No free fluid. No free air. LYMPH NODES: Unremarkable. No enlarged lymph nodes. BLADDER: Unremarkable. REPRODUCTIVE: Unremarkable. BONES: No acute fracture. OTHER FINDINGS: The report concurs with the preliminary [facility] report IMPRESSION: There is chronic right-sided hydronephrosis and hydroureter. This is unchanged. There are no obstructing stones seen.
[2018-07-13 10:14] VITALS: BP 151/71; PULSE 80; RESP 16; TEMP 97.3; O2SAT 96
== END 2018-07-13 07:08 | disposition home or self-care (01) ==
LOC: ED 04:26
DX: N39.0 Urinary tract infection, site not specified (principal); I10 Essential (primary) hypertension; Z86.73 Personal history of transient ischemic attack (TIA), and cerebral infarction without residual deficits